=== PATIENT | male | born 1940 | race Caucasian/White ===

== ENCOUNTER 2017-08-20 09:05 | Day surgery (SDC) | payer MEDICARE, OTHER ==
[~2017-08-20] VITALS: Ht 182.9 cm; Wt 106.8 kg
[~2017-08-20 09:05] MED LIST: Advil200 M1 PO; ESOM20 PO; Excedrin Extra1 EACH PO; GLIP10 PO; LOVA40 PO; METF500 PO; PIOG30 PO; SILD50TA PO; TAMS.4ER PO
[2017-08-20] MEDS ORDERED: Metoprolol Succ25 MG PO (09:34)
[2017-08-20] MEDS ORDERED: ASPI81CH PO (12:28)
== END 2017-08-20 14:30 | disposition home or self-care (01) ==
LOC: MHTC 09:05
PROC: B211YZZ Fluoroscopy of Multiple Coronary Arteries using Other Contrast (ICD-10-PCS; principal; 2017-08-20)
DX: I25.119 Atherosclerotic heart disease of native coronary artery with unspecified angina pectoris (principal); E11.9 Type 2 diabetes mellitus without complications; Z79.84 Long term (current) use of oral hypoglycemic drugs; Z87.891 Personal history of nicotine dependence; E78.5 Hyperlipidemia, unspecified; Z82.49 Family history of ischemic heart disease and other diseases of the circulatory system
CPT/HCPCS: 93454; 93458; 99152; 99153; C1769; C1894; J1644; J2250; J3010; J7030; Q9967

== ENCOUNTER 2019-08-23 07:54 | Day surgery (SDC) | payer MEDICARE, OTHER ==
[~2019-08-23] VITALS: Ht 182.9 cm; Wt 104.8 kg
[~2019-08-23 07:54] MED LIST changes: +ASPI81CH PO; +Metoprolol Succ25 MG PO
== END 2019-08-23 10:10 | disposition home or self-care (01) ==
LOC: ORSCSDS 07:54
PROVIDERS: Surgery
PROC: 0DBN8ZX Excision of Sigmoid Colon, Via Natural or Artificial Opening Endoscopic, Diagnostic (ICD-10-PCS; principal; 2019-08-23 09:15)
PROC: 0DBK8ZX Excision of Ascending Colon, Via Natural or Artificial Opening Endoscopic, Diagnostic (ICD-10-PCS; principal; 2019-08-23 09:15)
DX: Z12.11 Encounter for screening for malignant neoplasm of colon (principal); D12.2 Benign neoplasm of ascending colon; D12.5 Benign neoplasm of sigmoid colon; Z86.010 Personal history of colon polyps; E11.9 Type 2 diabetes mellitus without complications; E78.5 Hyperlipidemia, unspecified; I25.10 Atherosclerotic heart disease of native coronary artery without angina pectoris; Z79.82 Long term (current) use of aspirin; Z79.84 Long term (current) use of oral hypoglycemic drugs; Z79.899 Other long term (current) drug therapy
CPT/HCPCS: 82947; 88305; J2704; J7120

== ENCOUNTER → 2022-11-18 | Outpatient (CLI) | payer MEDICARE, OTHER ==
[2022-11-18 14:57] LABS: BASOPHILS ABSOLUTE AUTO 0.01 K/mm3 (0.00-0.23); BASOPHILS PERCENT AUTO 0 % (0-2); EOSINOPHILS ABSOLUTE AUTO 0.04 K/mm3 (0.00-0.68); EOSINOPHILS PERCENT AUTO 1 % (0-6); Hematocrit 39.9 % (37.0-53.0); Hemoglobin 13.1 g/dL (13.5-17.5); IMMATURE GRAN ABSOLUTE AUTO 0.01 K/mm3 (0.00-0.10); IMMATURE GRAN PERCENT AUTO 0 % (0-1); LYMPHOCYTES ABSOLUTE AUTO 1.14 K/mm3 (0.84-5.20); LYMPHOCYTES PERCENT AUTO 18 % (21-46); MONOCYTES ABSOLUTE AUTO 0.41 K/mm3 (0.16-1.47); MONOCYTES PERCENT AUTO 7 % (4-13); Mean Corpuscular HGB 28.9 pg (26.0-34.0); Mean Corpuscular HGB Conc 32.8 g/dL (31.5-36.5); Mean Corpuscular Volume 88 fL (80-100); Mean Platelet Volume 10.1 fL (9.1-12.4); NEUTROPHILS ABSOLUTE AUTO 4.67 K/mm3 (1.96-9.15); NEUTROPHILS PERCENT AUTO 74 % (41-73); Platelet Count 162 K/mm3 (150-400); RDW Coefficient Variation 13.2 % (11.7-14.2); RDW Standard Deviation 42.5 fL (35.1-46.3); Red Blood Cell Count 4.53 M/mm3 (4.30-5.90); White Blood Cell Count 6.28 K/mm3 (4.00-11.30)
[2022-11-18 15:31] LABS: Albumin, Blood 3.5 g/dL (3.4-5.0); Albumin/Globulin Ratio 1.2 (0.8-1.8); Bilirubin, Total 0.4 mg/dL (0.1-1.0); Bun/Creatinine Ratio 23.6 (12.0-20.0); Calcium, Blood 9.3 mg/dL (8.5-10.1); Creatinine, Blood 0.85 mg/dL (0.60-1.20); Potassium, Blood 4.7 mmol/L (3.5-5.5); Total Protein, Blood 6.5 g/dL (6.4-8.2)
== END | disposition home or self-care (01) ==
LOC: LAB SHORT 09:22 → LAB 09:22
PROVIDERS: Family Medicine
DX: E11.65 Type 2 diabetes mellitus with hyperglycemia (principal); E11.42 Type 2 diabetes mellitus with diabetic polyneuropathy; E78.49 Other hyperlipidemia
CPT/HCPCS: 80053; 83036; 85025

== ENCOUNTER 2024-10-11 05:19 | Day surgery (SDC) | payer MEDICARE ==
[~2024-10-11] VITALS: Ht 182.9 cm; Wt 98.2 kg
[2024-10-11] MEDS ORDERED: BASAGLAR K100 UNIT/3 (08:02)
[2024-10-11] MEDS ORDERED: Inderal 20 mg T20 MG (08:04)
[2024-10-11] MEDS ORDERED: ATOR10 (08:07)
[2024-10-11] MEDS ORDERED: LOSA50 (08:07)
[2024-10-11] MEDS ORDERED: ZINC15 (08:09)
[2024-10-11] MEDS ORDERED: FOLIC ACID480 MCG (08:09)
[2024-10-11 09:53] VITALS: BP 136/65
== END 2024-10-11 10:01 | disposition home or self-care (01) ==
LOC: ORSCSDS 05:19
PROVIDERS: Surgery
PROC: 0DBL8ZX Excision of Transverse Colon, Via Natural or Artificial Opening Endoscopic, Diagnostic (ICD-10-PCS; principal; 2024-10-11 09:00)
DX: R19.5 Other fecal abnormalities (principal); R19.4 Change in bowel habit; E78.5 Hyperlipidemia, unspecified; K63.5 Polyp of colon; I10 Essential (primary) hypertension; E11.9 Type 2 diabetes mellitus without complications; K21.9 Gastro-esophageal reflux disease without esophagitis; I25.10 Atherosclerotic heart disease of native coronary artery without angina pectoris; Z79.84 Long term (current) use of oral hypoglycemic drugs; Z87.891 Personal history of nicotine dependence; Z79.899 Other long term (current) drug therapy
CPT/HCPCS: 82947; 88305; J2704; J7120